=== PATIENT | female | born 1995 | race Caucasian/White ===

== ENCOUNTER → 2018-09-26 10:26 | Outpatient (CLI) | payer BC, OTHER, SELFPAY ==
[2016-07-21 01:37] VITALS: BMI 18.3
[2018-09-26 11:32] LABS: Ferritin 23 ng/mL (8-252)
[2018-09-29 09:12] LABS: ANTINUCLEAR ANTIBODIES DIRECT Negative (Negative)
== END ==
PROVIDERS: Family Provider Family Medicine; PCP Family Medicine; Referring Provider Family Medicine; Visit Provider Family Medicine
DX: I73.00 Raynaud's syndrome without gangrene (principal)
CPT/HCPCS: 36415; 82728; 84443; 86038

== ENCOUNTER 2019-02-03 02:25 | Emergency (ER) | payer BC, OTHER, SELFPAY ==
[2019-02-03 02:26] VITALS: BP 139/94; PULSE 66; RESP 16; TEMP 36.3; O2SAT 100; BMI 17.1
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
[2019-02-03] MEDS: Metoclopramide 10 MG Tablet PO (03:01)
[2019-02-03] MEDS: Ketorolac 60 MG/2 ML Vial IM (03:01)
[2019-02-03 05:07] VITALS: RESP 14
== END 2019-02-03 05:08 | disposition home or self-care (01) ==
PROVIDERS: Emergency Provider Emergency Medicine; Family Provider Family Medicine; PCP Family Medicine
DX: R51 Headache (principal); S00.83XA Contusion of other part of head, initial encounter; V49.9XXD Car occupant (driver) (passenger) injured in unspecified traffic accident, subsequent encounter
CPT/HCPCS: 70100; 96372; 99283

== ENCOUNTER → 2020-04-12 | Outpatient (CLI) | payer OTHER, SELFPAY ==
--- NOTE | 2020-04-12 16:12 | RAD_ITS ---
STUDY: X-RAY - UNILATERAL RIBS ( RIGHT ) REASON FOR EXAM: Female, 24 years old. LUMPS/BUMPS JUST UNDER THE SKIN ON THE RIGHT SIDE OF STERNAL ANGLE/ MANUBRIUM AREA. TECHNIQUE: 3 view(s) of the ribs. COMPARISON: 09/08/2014. FINDINGS: Normal visualized ribs without a demonstrated fracture. The visualized lung is clear and expanded. RAD/Ribs Unil 2V No CXR IMPRESSION: Normal x-ray examination of the ribs. Electronically Signed: Elvis Ruiz MD at 16:27 EDT , Service support ,
== END | disposition home or self-care (01) ==
LOC: MTRAD 16:09
PROVIDERS: PCP Family Medicine; Referring Provider Family Medicine; Visit Provider Family Medicine
DX: R22.9 Localized swelling, mass and lump, unspecified (principal)
CPT/HCPCS: 71100

== ENCOUNTER 2021-04-24 01:30 | Inpatient (IN) | payer BC, SELFPAY ==
[2021-04-23 22:44] VITALS: BMI 26.0
[2021-04-23 23:01] VITALS: TEMP 36.5
[2021-04-23 23:04] VITALS: BP 116/77; PULSE 89; O2SAT 97
[2021-04-23 23:37] LABS: ROM Internal Control Test YES-OK TO RESULT pt. (Internal QC); ROM Patient Test Negative (Negative)
[2021-04-24] VITALS (38 sets, daily range): BP systolic 86–129; BP diastolic 42–80; PULSE 69–148; RESP 16–18; TEMP 36.3–37.4; O2SAT 94–100
[2021-04-24] MEDS: Lactated Ringers 1,000 ML 200 ML IV (02:10)
[2021-04-24 02:30] LABS: Absolute Lymphocyte Count 1.85 X10^3/uL (0.83-4.51); Absolute Neutrophil Count 13.2 X10^3/uL (2.0-7.7); Basophil# 0.04 X10^3/uL; Basophil% 0.2 % (0-1); Eosinophil# 0.05 X10^3/uL; Eosinophils% 0.3 % (0-5); Hematocrit 35.2 % (37-47); Hemoglobin 11.6 g/dL (12.0-15.0); Lymphocyte # 1.85 X10^3/ul (0.83-4.51); Lymphocyte % 11.2 % (19-41); Mean Corpuscular Hgb 30.5 pg (27.0-32.0); Mean Corpuscular Volume 92.6 fL (81-99); Mean Platelet Vol. 10.3 fl (6.2-12.0); Monocyte# 1.19 X10^3/uL; Monocyte% 7.2 % (0-10); NRBC Flagged by Analyzer 0 % (0-5); Neutrophil # 13.21 X10^3/uL (2.7-7.7); Neutrophil % 80.4 % (47-70); Platelet Count 167 K/mm3 (150-450); RBC Distribution Width CV 12.8 % (11.6-14.6); RBC Distribution Width SD 43.2 fl (35.1-43.9); White Blood Count 16.5 K/mm3 (4.4-11.0)
[2021-04-24] MEDS: Oxytocin 30 units/NS 500 ml 30 UNITS/500 ML IV.SOLN 334 UNITS IV (03:55)
--- NOTE | 2021-04-24 06:03 | HP.PCM.OB_ITS ---
HPI - General General Date of Admission: 04/24/21 HPI Narrative ASHA EVANS, is a 25 F G1 who presents at 38w6d in early labor after membrane sweep in the office. PFSH PFSH Medical History (Updated 04/24/21 @ 06:[address] Nereida Doty, DO) History of blood transfusion Home Medications acyclovir 400 mg PO TID 04/23/21 [History Last Taken 04/23/21 20:00] ferrous sulfate [iron] 325 mg PO DAILY 04/23/21 [History Last Taken 04/22/21 22:00] [id number] [] 1 tab PO DAILY 04/23/21 [History Last Taken 04/22/21 22:00] Allergy/AdvReac Type Severity Reaction Status Date / Time Sulfa (Sulfonamide Allergy Rash Verified 04/23/21 22:44 Antibiotics) adhesive tape AdvReac Intermediate Itching Verified 04/23/21 22:44 and redness Surgical History (Updated 04/24/21 @ 02:45 by Evie Hernandez) History of tonsillectomy and adenoidectomy [place] teeth removed Social History Smoking Status: Never smoker History Elective abortions Hx Para 0 Spontaneous abortions Hx # Term Pregnancies Ectopic pregnancies Hx # Pregnancies Multiple births # of living children NST FHR Rate Baby A FHR Category:: Category I Uterine Activity:: ctx's q 3-4 min Vital Signs Vital Signs Vital Signs: 04/23/21 22:58 04/23/21 23:01 04/23/21 23:04 Temperature 97.7 F L Temperature Source Temporal Pulse Rate 89 Blood Pressure 116/77 BP Systolic 116 BP Diastolic 77 Pulse Ox 97 04/24/21 01:55 04/24/21 02:27 04/24/21 02:34 Temperature 99.1 F Temperature Source Pulse Rate 89 81 69 Blood Pressure 129/78 H BP Systolic 129 BP Diastolic 78 Pulse Ox 99 99 04/24/21 03:07 04/24/21 03:12 04/24/21 03:17 Temperature Temperature Source Pulse Rate 72 74 102 H Blood Pressure BP Systolic BP Diastolic Pulse Ox 98 99 98 04/24/21 03:22 04/24/21 05:51 04/24/21 05:52 Temperature 97.3 F L Temperature Source Pulse Rate 79 108 H 116 H Blood Pressure 115/57 L BP Systolic 115 BP Diastolic 57 Pulse Ox 99 98 04/24/21 05:57 04/24/21 06:02 Temperature Temperature Source Pulse Rate 91 89 Blood Pressure BP Systolic BP Diastolic Pulse Ox 99 100 Weight Weight: 161 lb 9.6 oz Body Mass Index (BMI) 26.0 Labs Labs Labs: Blood Type O POSITIVE Antibody Screen NEGATIVE Hct 35.2 % (37-47) L Hgb 11.6 g/dL (12.0-15.0) L C.trachomatis DNA (PCR) Negative (Negative) Rhogam given: No Miscellaneous Test Assessment & Plan (1) 38 weeks gestation of : PLAN: - Routine intrapartum care - PCN for GBS prophylaxis - No HSV symptoms or lesions - Pelvis adequate and EFW expected to be < 4500 g - Anticipate (2) Uterine contractions: (3) Herpes: (4) Positive GBS test: (5) Excessive growth:
--- NOTE | 2021-04-24 06:06 | OP.PCM_ITS ---
Problems Associated Problem List Diagnoses (1) Excessive growth: (2) Positive GBS test: (3) Herpes: (4) Uterine contractions: (5) 38 weeks gestation of : Operative Report Date of Procedure: 04/24/21 Patient complete and pushing. The infants head was delivered in OA position, followed by the body of the without any excessive force, delay, or traction. Viable male was placed on maternal abdomen. The cord was clamped and cut after 60 sec delay. Cord blood was obtained. The placenta delivered spontaneously and was noted to be normal-appearing and intact with three-vessel cord. A left sulcal tear was noted with active bleeding. Local anesthetic was injected, but the patient was uncomfortable during repair. At this point in time discussed option of taking patient back to the operating room for repair. Patient agreeable to a repair in the OR for better visualization and comfort. The patient was taken back to the operating room where she was prepped and draped in the usual sterile fashion in dorsal lithotomy position with yellowfin stirrups. A deep left sulcal tear was noted with active bleeding. A right angle retractor was placed for better exposure. Using 3-0 Vicryl, and starting at the apex of the laceration, the laceration was started to be repaired in a running locked fashion. The tissue was edematous, and the suture was pulling through the tissue. Continued bleeding was noted making visualization difficult. At this time Dr. Stephani Cummings attended for assistance with the repair. Using 3-0 Vicryl, the sulcal laceration was repaired in a running locked fashion. Several additional interrupted stitches were placed for support. Once left sulcal tear was repaired, Dr. Stephani Cummings left the OR. Bilateral labial lacerations were noted. The left labial laceration was reapproximated using 3-0 Vicryl. The right labial laceration was hemostatic. A Santiago was placed in the bladder with return of clear urine. A vaginal sweep was performed. Vaginal packing was placed. A rectal exam was performed. Insutrment, sponge and needle counts were correct. Delivering provider: Nereida Doty DO Cyber Security Administrator for repair of vaginal laceration: Stephani Cummings MD EBL: 500 cc MAC anesthesia Complications: None 1 vaginal packing placed Santiago catheter in place CBC at noon Ancef 2 grams x 1 ordered
[2021-04-24] MEDS: Cefazolin 2 GM in 0.9% Normal Saline 100 ML IV (06:25)
[2021-04-24] MEDS: Ibuprofen 600 MG Tablet PO ×2 (06:34→14:58)
--- NOTE | 2021-04-24 08:14 | PCM.PN.BLA ---
Progress Note pt seen at bedside, reports some discomfort rates pain 5/10. bourgeois catheter in place. reviewed with patient will keep packing in place x 24 hrs and will remove that and bourgeois at same time. pt agreeable to plan. will check CBC at noon.
[2021-04-24] MEDS: Acetaminophen 500 MG Tablet 1000 MG PO ×2 (10:31→20:41)
[2021-04-24 12:11] LABS: Hemoglobin 8.8 g/dL (12.0-15.0); Mean Corp Hgb Conc 33.8 g/dL (32-36); Mean Corpuscular Hgb 31.2 pg (27.0-32.0); Mean Corpuscular Volume 92.2 fL (81-99); Mean Platelet Vol. 10.1 fl (6.2-12.0); Platelet Count 155 K/mm3 (150-450); RBC Distribution Width CV 12.9 % (11.6-14.6); RBC Distribution Width SD 43.1 fl (35.1-43.9); Red Blood Count 2.82 M/mm3 (4.2-5.4); White Blood Count 17.1 K/mm3 (4.4-11.0)
--- NOTE | 2021-04-24 17:00 | NURSING ---
while standing patient c/o dizziness and feeling nauseous in her chest. Will call physician.
[2021-04-24 17:25] LABS: Hematocrit 26.2 % (37-47); Hemoglobin 8.8 g/dL (12.0-15.0); Mean Corp Hgb Conc 33.6 g/dL (32-36); Mean Corpuscular Volume 92.3 fL (81-99); Mean Platelet Vol. 10.1 fl (6.2-12.0); Platelet Count 155 K/mm3 (150-450); RBC Distribution Width SD 43.7 fl (35.1-43.9); Red Blood Count 2.84 M/mm3 (4.2-5.4); White Blood Count 16.7 K/mm3 (4.4-11.0)
[2021-04-24] MEDS: 0.9% Saline Lock 10 ML Syringe IV (18:46)
--- NOTE | 2021-04-25 | NURSING ---
report received from lwaters RN. this RN to assume care of pt at this time.
[2021-04-25] MEDS: 0.9% Saline Lock 10 ML Syringe IV (00:25)
[2021-04-25 00:27] VITALS: BP 105/68; PULSE 81; RESP 16; TEMP 36.8
--- NOTE | 2021-04-25 02:06 | NURSING ---
this RN spoke with dr diehl at nurses station regarding 24 hour bourgeois catheter and vaginal packing request. dr diehl states that [facility] CNM plans to come to unit this AM to remove packing and then day shift RN can remove bourgeois catheter following the removal of the vaginal packing. this RN updated weigher and charger on plan of care. pt aware of this, as well.
[2021-04-25 03:53] VITALS: BP 94/58; PULSE 74; RESP 16; TEMP 36.9
--- NOTE | 2021-04-25 05:55 | NURSING ---
pt denies feeling dizzy or lightheaded. pt resting quietly in bed.
[2021-04-25] MEDS: oxyCODONE 5 MG Tablet PO (06:48)
[2021-04-25 06:51] LABS: Hematocrit 29.6 % (37-47); Hemoglobin 9.8 g/dL (12.0-15.0); Mean Corp Hgb Conc 33.1 g/dL (32-36); Mean Corpuscular Hgb 30.8 pg (27.0-32.0); Mean Corpuscular Volume 93.1 fL (81-99); Mean Platelet Vol. 9.9 fl (6.2-12.0); Platelet Count 159 K/mm3 (150-450); RBC Distribution Width CV 13.2 % (11.6-14.6); RBC Distribution Width SD 45.2 fl (35.1-43.9); Red Blood Count 3.18 M/mm3 (4.2-5.4); White Blood Count 14.7 K/mm3 (4.4-11.0)
[2021-04-25 08:24] VITALS: BP 101/52; PULSE 71; RESP 16; TEMP 36.6
--- NOTE | 2021-04-25 08:34 | PCM.PN.OB ---
Subjective Subjective Doing well per patient and nursing staff. Ambulating and taking PO.. Santiago in place. Increased pain vaginally and at IV site. , services for assistance. Denies headache, visual changes, chest pain, shortness of breath, leg pain or increased bleeding. Lochia normal. Objective Data Objective Data Vital Signs: Vital Signs Temp Pulse Resp BP Pulse Ox 98.4 F 89 16 106/70 97 04/25/21 14:00 04/25/21 14:00 04/25/21 14:00 04/25/21 14:00 04/24/21 23:30 Oxygen Delivery Method Room Air Weight: 161 lb 9.6 oz Body Mass Index (BMI) 26.0 Intake & Output: Intake and Output for Last 24 Hours 04/23/21 04/24/21 04/25/21 23:59 23:59 23:59 Intake Total 2481.67 / 2481.67 550 / 550 Output Total 2024 / 2024 2600 / 2600 Balance 456.67 / 456.67 -2049 / Lab / Micro Data Result Diagrams: 04/25/21 13:00 Labs: Laboratory Results - last 24 hr 04/24/21 02:07: Crossmatch See Detail 04/25/21 06:30: WBC 14.7 H, RBC 3.18 L, Hgb 9.8 L, Hct 29.6 L, MCV 93.1, MCH 30.8, MCHC 33.1, RDW Std Deviation 45.2 H, RDW Coeff of Joby 13.2, Plt Count 159, MPV 9.9 04/25/21 13:00: WBC 14.7 H, RBC 3.07 L, Hgb 9.3 L, Hct 28.0 L, MCV 91.2, MCH 30.3, MCHC 33.2, RDW Std Deviation 44.0 H, RDW Coeff of Joby 13.3, Plt Count 165, MPV 10.0 Micro: Microbiology 04/24/21 01:24 Mucosa - Nose SARS-CoV-2 Antigen (Rapid) - Final ROS Constitutional Constitutional: Reports systems reviewed and no addt'l complaints, except as documented; Denies headache(s) Eyes Eyes: Denies acute decrease in peripheral vision, blurry vision or change in vision ENT HEENT: Reports systems reviewed and no addt'l complaints, except as documented Cardiovascular Cardiovascular: Denies chest pain or dizziness Respiratory/Chest Respiratory/Chest: Denies cough, dyspnea, dyspnea on exertion, shortness of breath at rest or shortness of breath with exertion Gastrointestinal Gastrointestinal: Denies abdominal pain, diarrhea, nausea or vomiting Genitourinary Genitourinary: Denies abdominal discomfort Musculoskeletal Musculoskeletal: Denies limited range of motion Integumentary Integumentary: Reports systems reviewed and no addt'l complaints, except as documented Neurologic Neurologic: Reports systems reviewed and no addt'l complaints, except as documented Psychiatric Psychiatric: Reports systems reviewed and no addt'l complaints, except as documented Endocrine Endocrinology: Reports systems reviewed and no addt'l complaints, except as documented Hematologic/Lymphatic Hematologic/Lymphatic: Reports systems reviewed and no addt'l complaints, except as documented Allergic/Immunologic Allergic/Immunologic: Reports systems reviewed and no addt'l complaints, except as documented Physical Exam Const alert and oriented x3 General Appearance: cooperative Orientation / Consciousness: awake, oriented to person, oriented to place and oriented to time Exam Limitations: no limitations HEENT normocephalic Head and Scalp: normal to inspection, normocephalic and atraumatic Face and Sinus: normal facial exam Eyes General Eye: normal appearance of both eyes Neck full ROM Chest Chest: symmetrical chest wall rise Resp normal respiratory effort and normal air movement Auscultation: clear to auscultation bilaterally Cardio regular rate, regular rhythm, S1 normal heart sound, S2 normal heart sound, no murmurs, no rub, no gallops and no clicks GI normal to inspection, nondistended, normoactive bowel sounds and non-tender appearance of the vagina normal Narrative: vaginal packing removed without difficulty. lochia rubra, no clots Bladder / Kidney Exam: no CVA tenderness Back/Spine normal ROM Extremity normal to inspection and full ROM Skin no rashes or lesions noted Neuro oriented x3, CN's II-XII intact bilaterally and moves all extremities Sensorium / Orientation: awake, alert and oriented to person Motor Exam: clonus absent Deep Tendon Reflexes: Rt Patellar (L4): 2+ and Lt Patellar (L4): 2+ Assessment & Plan (1) (normal spontaneous vaginal delivery): (2) Laceration of vaginal wall or sulcus without perineal laceration during delivery: PLAN: 1. Routine and breast-feeding care 2. services to assist with breast-feeding 3. Remove Santig[place] 4. Hemoglobin stable, patient to get up out of bed today and repeat CBC at noon, if needed will start IV iron. 5. Pain management 6. Patient bleeding stable after packing removal, okay to DC IV due to patient discomfort as she states she would want it placed in another site if needed further IV medications. 7. Planning DC home tomorrow
[2021-04-25 13:12] LABS: Hemoglobin 9.3 g/dL (12.0-15.0); Mean Corp Hgb Conc 33.2 g/dL (32-36); Mean Corpuscular Hgb 30.3 pg (27.0-32.0); Mean Corpuscular Volume 91.2 fL (81-99); Platelet Count 165 K/mm3 (150-450); RBC Distribution Width CV 13.3 % (11.6-14.6); Red Blood Count 3.07 M/mm3 (4.2-5.4); White Blood Count 14.7 K/mm3 (4.4-11.0)
[2021-04-25] MEDS: Ibuprofen 600 MG Tablet PO ×2 (13:15→21:02)
[2021-04-25] MEDS: Benzocaine/Lanolin/Aloe Vera 1 SPRAY EACH TOPICAL (13:15)
[2021-04-25] MEDS: Senna/Docusate Sodium 1 Tablet PO (13:16)
[2021-04-25 14:00] VITALS: BP 106/70; PULSE 89; RESP 16; TEMP 36.9
[2021-04-25 20:54] VITALS: BP 106/61; PULSE 75; RESP 18; TEMP 36.1
[2021-04-26 02:39] VITALS: BP 108/71; PULSE 66; RESP 18
[2021-04-26] MEDS: Acetaminophen 500 MG Tablet 1000 MG PO (02:42)
[2021-04-26] MEDS: oxyCODONE 5 MG Tablet PO (07:51)
[2021-04-26] MEDS: Senna/Docusate Sodium 1 Tablet PO (07:51)
[2021-04-26 08:12] VITALS: BP 102/60; PULSE 74; RESP 16; TEMP 36.3
[2021-04-26] MEDS: Ibuprofen 600 MG Tablet PO (08:20)
[2021-04-26] MEDS: Ferrous Sulfate 325 MG Tablet PO (08:20)
--- NOTE | 2021-04-26 08:25 | PCM.PN.OB ---
Subjective Subjective Patient seen at bedside. Feeling good. with support. Desires discharge home today. Started on PO iron supplementation and will continue once discharged home. Repeat CBC prior to discharge. Objective Data Objective Data Vital Signs: Vital Signs Temp Pulse Resp BP Pulse Ox 97.4 F L 74 16 102/60 97 04/26/21 08:12 04/26/21 08:12 04/26/21 08:12 04/26/21 08:12 04/24/21 23:30 Oxygen Delivery Method Room Air Weight: 161 lb 9.6 oz Body Mass Index (BMI) 26.0 Intake & Output: Intake and Output for Last 24 Hours 04/24/21 04/25/21 04/26/21 23:59 23:59 23:59 Intake Total 2481.67 / 2481.67 550 / 550 Output Total 2024 / 2024 2600 / 2600 Balance 456.67 / 456.67 -2049 / Lab / Micro Data Result Diagrams: 04/25/21 13:00 Labs: Laboratory Results - last 24 hr 04/25/21 13:00: WBC 14.7 H, RBC 3.07 L, Hgb 9.3 L, Hct 28.0 L, MCV 91.2, MCH 30.3, MCHC 33.2, RDW Std Deviation 44.0 H, RDW Coeff of Joby 13.3, Plt Count 165, MPV 10.0 Micro: Microbiology 04/24/21 01:24 Mucosa - Nose SARS-CoV-2 Antigen (Rapid) - Final ROS Eyes Eyes: Denies blurry vision, change in vision or spots in vision ENT HEENT: Denies dizziness or headache(s) Cardiovascular Cardiovascular: Denies abdominal pain, chest pain or dyspnea Respiratory/Chest Respiratory/Chest: Denies cough, dyspnea, shortness of breath at rest or shortness of breath with exertion Gastrointestinal Gastrointestinal: Denies abdominal pain, diarrhea or vomiting Genitourinary Genitourinary: Denies change in urinary stream, difficulty urinating or dysuria Musculoskeletal Musculoskeletal: Reports none Integumentary Integumentary: Denies rash Neurologic Neurologic: Denies dizziness, headache(s), memory loss or weakness Physical Exam Const alert and no apparent distress General Appearance: cooperative and comfortable Exam Limitations: no limitations HEENT normocephalic Eyes General Eye: normal appearance of both eyes Neck full ROM General: normal visual inspection Chest Chest: symmetrical chest wall rise Resp normal respiratory effort and normal air movement Effort and Inspection: symmetric chest movement Auscultation: clear to auscultation bilaterally Cardio regular rate and regular rhythm GI normal to inspection, nondistended, normoactive bowel sounds Back/Spine normal ROM Extremity full ROM and no calf tenderness General Extremity: normal exam except as noted Skin no rashes or lesions noted Neuro CN's II-XII intact bilaterally Psych mental status grossly normal Assessment & Plan (1) (normal spontaneous vaginal delivery): (2) Laceration of vaginal wall or sulcus without perineal laceration during delivery: PLAN: PPD #2 Routine care Start PO iron BID support Discharge home with follow up in office
[2021-04-26 08:42] LABS: Hematocrit 28.4 % (37-47); Hemoglobin 9.3 g/dL (12.0-15.0); Mean Corp Hgb Conc 32.7 g/dL (32-36); Mean Corpuscular Hgb 30.9 pg (27.0-32.0); Mean Corpuscular Volume 94.4 fL (81-99); Mean Platelet Vol. 9.7 fl (6.2-12.0); Platelet Count 172 K/mm3 (150-450); RBC Distribution Width CV 13.2 % (11.6-14.6); RBC Distribution Width SD 45.2 fl (35.1-43.9); Red Blood Count 3.01 M/mm3 (4.2-5.4)
== END 2021-04-26 13:40 | disposition home or self-care (01) | DRG 806 ==
LOC: WPOUT 01:38 → WP 01:38
PROVIDERS: Advanced Practice Midwife; Obstetrics & Gynecology; Admitting Provider Obstetrics & Gynecology; PCP Family Medicine; Visit Provider Obstetrics & Gynecology
DX: O98.32 Other infections with a predominantly sexual mode of transmission complicating childbirth (principal); O71.4 Obstetric high vaginal laceration alone; Z37.0 Single live birth; D62 Acute posthemorrhagic anemia; A60.00 Herpesviral infection of urogenital system, unspecified; Z3A.38 38 weeks gestation of pregnancy; O99.824 Streptococcus B carrier state complicating childbirth; O36.63X0 Maternal care for excessive fetal growth, third trimester, not applicable or unspecified; Z79.899 Other long term (current) drug therapy; O99.02 Anemia complicating childbirth; O70.0 First degree perineal laceration during delivery
CPT/HCPCS: 59025; 59050; 84112; 85025; 85027; 86850; 86900; 86901; 86920; 86922; 87426; 99218; J7120; P9016; A4216; G0378; J2405